=== PATIENT | female | born 1965 | race Caucasian/White ===

== ENCOUNTER 2017-05-18 06:33 | Day surgery (SDC) | payer MEDICAID ==
[2017-05-18] VITALS (7 sets, daily range): BP systolic 97–126; BP diastolic 56–75
[~2017-05-18] VITALS: Ht 163.8 cm; Wt 61.6 kg
[~2017-05-18 06:33] MED LIST: HYDR-3964 PO; LACT1CAP26 PO; PER10325T PO
[2017-05-18] MEDS ORDERED: normal saline 1000ml 1,000 ML IV SCH ×2 (06:50→08:57)
[2017-05-18] MEDS ORDERED: ONDA8TAB6 PO (07:18)
[2017-05-18] MEDS ORDERED: phenergan (07:18)
[2017-05-18] MEDS ORDERED: fiber PO (07:18)
[2017-05-18] MEDS ORDERED: bactrim PO (07:18)
[2017-05-18] MEDS ORDERED: compazine (07:18)
[2017-05-18 07:36] LABS: BASOPHILS # (AUTO) 0.1 X10'3 (0-0.2); BASOPHILS % (AUTO) 0.6 % (0-1); EOSINOPHILS # (AUTO) 0.3 X10'3 (0-0.9); EOSINOPHILS % (AUTO) 3.1 % (0-6); HEMATOCRIT 34.2 % (35.0-45.0); HEMOGLOBIN 11.6 g/dl (12.0-16.0); LYMPHOCYTES # (AUTO) 2.2 X10'3 (1.1-4.8); LYMPHOCYTES % (AUTO) 20.7 % (21-51); MEAN CORPUSCULAR HEMOGLOBIN 26.5 PG (27.0-31.0); MEAN CORPUSCULAR HGB CONC 33.8 % (33.0-36.5); MEAN CORPUSCULAR VOLUME 78.3 FL (78-98); MEAN PLATELET VOLUME 6.7 FL (7.4-10.4); MONOCYTES # (AUTO) 0.5 X10'3 (0-0.9); NEUTROPHILS # (AUTO) 7.5 X10'3 (1.8-7.7); NEUTROPHILS % (AUTO) 70.6 % (42-75); PLATELET COUNT 382 X10'3 (140-440); RED BLOOD COUNT 4.36 X10'6 (4.20-5.60); RED CELL DISTRIBUTION WIDTH 24.3 % (11.5-14.5); WHITE BLOOD COUNT 10.7 X10'3 (4.5-11.0)
[2017-05-18] MEDS ORDERED: fentaNYL/PF 50MCG/1 ML 2ML syringe ONE (09:06)
[2017-05-18] MEDS ORDERED: diphenhydrAMINE 50 mg/ml inj ONE (09:06)
[2017-05-18] MEDS ORDERED: LIDOcaine 1%/PF (10mg/ml) 5ml vial ONE (09:06)
[2017-05-18] MEDS ORDERED: heparin sodium, porcine/PF 100unit/ml 5ML syringe ONE (09:06)
[2017-05-18] MEDS ORDERED: fentaNYL/PF 50MCG/1 ML 2ML syringe IV PRN (09:45)
[2017-05-18] MEDS ORDERED: diphenhydrAMINE 50 mg/ml inj IV ONE (09:45)
== END 2017-05-18 11:08 | disposition home or self-care (01) ==
LOC: SSTAY O 06:33
PROVIDERS: ATTEND Radiology Diagnostic Radiology
DX: C18.9 Malignant neoplasm of colon, unspecified (principal); C80.1 Malignant (primary) neoplasm, unspecified; F17.210 Nicotine dependence, cigarettes, uncomplicated; F15.90 Other stimulant use, unspecified, uncomplicated; F32.9 Major depressive disorder, single episode, unspecified; Z86.73 Personal history of transient ischemic attack (TIA), and cerebral infarction without residual deficits; Z98.51 Tubal ligation status; Z79.2 Long term (current) use of antibiotics; Z98.890 Other specified postprocedural states; Z88.0 Allergy status to penicillin; Z88.1 Allergy status to other antibiotic agents; Z88.6 Allergy status to analgesic agent; Z79.899 Other long term (current) drug therapy
CPT/HCPCS: 36415; 36561; 76937; 77001; 82948; 85025; A6219; C1788; C1894; J1200; J1642; J2001; J3010; J7030; A4620

== ENCOUNTER 2018-07-06 07:28 | Day surgery (SDC) | payer MEDICAID ==
[~2018-07-06] VITALS: Ht 160 cm; Wt 68.7 kg
[2018-07-06] VITALS (8 sets, daily range): BP systolic 106–138; BP diastolic 53–81
[~2018-07-06 07:28] MED LIST changes: -LACT1CAP26 PO; +ONDA8TAB6 PO; -PER10325T PO; +bactrim PO; +compazine; +fiber PO; +phenergan
[2018-07-06] MEDS ORDERED: HYDROcodone/acetaminophen 10/325mg tab PO ONE (08:45)
[2018-07-06] MEDS ORDERED: LIDOcaine 1%/PF 5ML 10 MG/ML VIAL ONE (10:03)
== END 2018-07-06 12:10 | disposition home or self-care (01) ==
LOC: SSTAY O 07:28
PROVIDERS: ATTEND Radiology Vascular & Interventional Radiology
DX: Z45.2 Encounter for adjustment and management of vascular access device (principal); E11.9 Type 2 diabetes mellitus without complications; Z80.0 Family history of malignant neoplasm of digestive organs; F32.9 Major depressive disorder, single episode, unspecified; F20.9 Schizophrenia, unspecified; Z79.899 Other long term (current) drug therapy; Z88.0 Allergy status to penicillin; Z88.6 Allergy status to analgesic agent; Z88.8 Allergy status to other drugs, medicaments and biological substances; Z80.3 Family history of malignant neoplasm of breast; Z80.8 Family history of malignant neoplasm of other organs or systems
CPT/HCPCS: 36590; J2001

== ENCOUNTER 2018-09-15 03:11 | Inpatient (IN) | payer MEDICAID ==
[~2018-09-15] VITALS: Ht 160 cm; Wt 60.0 kg
[2018-09-15] VITALS (14 sets, daily range): BP systolic 111–139; BP diastolic 51–80
[~2018-09-15 03:11] MED LIST changes: -HYDR-3964 PO; -bactrim PO; -fiber PO; -phenergan
--- NOTE | 2018-09-15 04:14 | NUR ---
PATIENT STATES SHE WAS BIT BY HER CAT THAT HAS NOT RECIEVED IMMUNIZATIONS, PATIENT WAS EDUCATED ON THE RISK OF DISEASE HUMANS CAN AQUIRE FROM ANIMAL BITES
[2018-09-15] MEDS ORDERED: levoFLOXACIN-Levaquin 750MG/D5 150 ML IV STA (04:40)
[2018-09-15] MEDS ORDERED: clindamycin phosphate inj 600 MG in normal saline 50ml IV soln 50 ML IV ONE (04:40)
[2018-09-15] MEDS ORDERED: normal saline 1000ML IV soln IVB ONE (04:40)
[2018-09-15] MEDS ORDERED: morphine 4 MG/ML inj SYRINge IV ONE (04:50)
[2018-09-15] MEDS ORDERED: ondansetron/PF 4mg/2ml inj IV ONE ×2 (04:50→08:00)
[2018-09-15 05:47] LABS: BASOPHILS # (AUTO) 0.1 X10'3 (0-0.2); BASOPHILS % (AUTO) 1.2 % (0-1); EOSINOPHILS # (AUTO) 0.2 X10'3 (0-0.9); EOSINOPHILS % (AUTO) 1.4 % (0-6); HEMATOCRIT 35.7 % (35.0-45.0); HEMOGLOBIN 12.4 g/dl (12.0-16.0); LYMPHOCYTES # (AUTO) 2.1 X10'3 (1.1-4.8); LYMPHOCYTES % (AUTO) 17.8 % (21-51); MEAN CORPUSCULAR HEMOGLOBIN 31.8 PG (27.0-31.0); MEAN CORPUSCULAR HGB CONC 34.7 g/dL (33.0-36.5); MEAN CORPUSCULAR VOLUME 91.5 FL (78-98); MEAN PLATELET VOLUME 7.2 FL (7.4-10.4); MONOCYTES # (AUTO) 0.8 X10'3 (0-0.9); NEUTROPHILS # (AUTO) 8.6 X10'3 (1.8-7.7); NEUTROPHILS % (AUTO) 72.6 % (42-75); PLATELET COUNT 289 X10'3 (140-440); RED BLOOD COUNT 3.91 X10'6 (4.20-5.60); RED CELL DISTRIBUTION WIDTH 13.7 % (11.5-14.5); WHITE BLOOD COUNT 11.8 X10'3 (4.5-11.0)
[2018-09-15 05:54] LABS: ALANINE AMINOTRANSFERASE 31 U/L (12-78); ALBUMIN 3.7 G/DL (3.4-5.0); ALBUMIN/GLOBULIN RATIO 1.1 (1.1-1.5); ALKALINE PHOSPHATASE 82 IU/L (46-116); ANION GAP 11 (8-16); ASPARTATE AMINO TRANSFERASE 16 U/L (10-37); BILIRUBIN,TOTAL 0.5 MG/DL (0.1-1.0); BLOOD UREA NITROGEN 21 MG/DL (7-18); CALCIUM 8.7 MG/DL (8.5-10.1); CHLORIDE 104 MMOL/L (99-107); CREATININE 0.75 MG/DL (0.40-0.90); GLUCOSE 91 MG/DL (70-104); POTASSIUM 3.4 MMOL/L (3.5-5.1); SODIUM 140 MMOL/L (135-145); TOTAL CARBON DIOXIDE 24.6 MMOL/L (24-32); eGFR 80 ML/MIN
[2018-09-15] MEDS ORDERED: ketorolac trometh. 30mg/ml inj. IV ONE (06:35)
[2018-09-15] MEDS ORDERED: iohexol 300mg/ml 100ml inj. ONE (07:06)
--- NOTE | 2018-09-15 07:30 | NUR ---
pt ambulatory to the bathroom with steady gait, pt provide urine sample, sent to lab
--- NOTE | 2018-09-15 07:53 | NUR ---
PT BACK FROM CT, PT PLACED ON MONITOR, UPDATED VS, PT ALSO PLACED BACK ON IV ABX PER ORDERS.
--- NOTE | 2018-09-15 07:57 | NUR ---
PT REPORTS NAUSEA WHEN OUT AT CT, RECEIVED VERBAL ORDER FROM DR SMITH 4 MG IV ZOFRAN ONCE NOW, MD AWARE OF PREVIOUS DOSE 4 MG ZOFRAN EARLIER THIS AM.
[2018-09-15 08:06] LABS: CLARITY,URINE SLIGHTLY CLOUDY (Clear); COLOR,URINE YELLOW (Yellow); GLUCOSE, URINE NEGATIVE (Neg); KETONES,URINE NEGATIVE (Neg); LEUKOCYTE ESTERASE ,URINE NEGATIVE (Neg); NITRITES, URINE NEGATIVE (Neg); OCCULT BLOOD,URINE TRACE-INTACT (Neg); PROTEIN,URINE NEGATIVE (Neg); UROBILINOGEN,URINE 0.2 E.U/dL (0.2-1.0)
[2018-09-15 08:33] LABS: UA COLLECTION TYPE CLN CATCH MIDSTREAM
[2018-09-15 08:34] LABS: MUCUS STRANDS MANY /LPF (Neg); RBC,URINE 0-2 /HPF (0-2); SQUAMOUS EPITHELIAL CELL,UR MANY /LPF (FEW); WBC,URINE 0-4 /HPF (0-4)
[2018-09-15 08:35] LABS: BACTERIA,URINE FEW /HPF (Neg); HYALINE CASTS 0-3 /LPF (NEGATIVE)
[2018-09-15] MEDS ORDERED: normal saline 1000ml 1,000 ML IV SCH (08:58)
[2018-09-15] MEDS ORDERED: magnesium Cl slow-release 64mg tablet PO PRN (09:00)
[2018-09-15] MEDS ORDERED: potassium Cl 40MEQ/NS 500ml 500 ML IV PRN (09:00)
[2018-09-15] MEDS ORDERED: potassium CL 10mEq/100ml bag 100 ML IV PRN (09:00)
[2018-09-15] MEDS ORDERED: magnesium 2GM in 50ml NS 50 ML IV PRN (09:00)
[2018-09-15] MEDS ORDERED: morphine 2 MG/ML inj. syringe IV PRN ×2 (09:00)
[2018-09-15] MEDS ORDERED: magnesium hydroxide 30ml (MOM) UD suspension PO PRN (09:00)
[2018-09-15] MEDS ORDERED: HYDROcodone/acetaminophen 5mg/325mg tablet PO PRN (09:00)
[2018-09-15] MEDS ORDERED: potassium Cl 20 mEq SR tablet PO PRN (09:00)
[2018-09-15] MEDS ORDERED: magnesium 4gm in 100ml NS 100 ML IV PRN (09:00)
[2018-09-15] MEDS ORDERED: HYDROcodone/acetaminophen 10/325mg tab PO PRN (09:00)
[2018-09-15] MEDS ORDERED: mag hydrox/Alum hydrox/simeth 30ml oral suspension PO PRN (09:00)
[2018-09-15] MEDS ORDERED: acetaminophen 325mg tablet PO PRN ×2 (09:00)
[2018-09-15 09:03] LABS: URINE AMPHETAMINE SCREEN POSITIVE (Neg); URINE BARBITUATE SCREEN NEGATIVE (Neg); URINE BENZODIAZEPINES SCREEN NEGATIVE (Neg); URINE CANNABINOID SCREEN POSITIVE (Neg); URINE COCAINE SCREEN NEGATIVE (Neg); URINE METHADONE SCREEN NEGATIVE (Neg); URINE OPIATE SCREEN POSITIVE (Neg); URINE PHENCYCLIDINE SCREEN NEGATIVE (Neg)
[2018-09-15] MEDS ORDERED: NO HOME MEDS (09:45)
--- NOTE | 2018-09-15 13:30 | NUR ---
checked pt bg was 79, spoke to hospitalist Erica, he gave order for dextrose, and said he will take pt off npo status, and give [place] juice, told him pt is vomiting, gave zofran
[2018-09-15] MEDS ORDERED: BUPIVAcaine/PF 2.5 mg/ml (0.25%) 30ml vial ONE (13:35)
[2018-09-15] MEDS ORDERED: MESSAGE TO PHARMACY PO ONE (13:40)
[2018-09-15] MEDS ORDERED: glucagon, human recombinant 1mg kit SUBCUT PRN (13:40)
[2018-09-15] MEDS ORDERED: dextrose ORAL solution 15 GM/59 ML bottle PO PRN ×2 (13:40)
[2018-09-15] MEDS ORDERED: sodium chloride inj. 154 MEQ in Dextrose 10%-water IV solution 961.5 ML IV SCH (13:40)
[2018-09-15] MEDS ORDERED: insulin Lispro (HumaLOG) vial - multi-dose SQ SCH (13:40)
[2018-09-15] MEDS ORDERED: dextrose 50%-water 50ml dispensing syringe IV PRN ×2 (13:40)
[2018-09-15] MEDS: ondansetron/PF 4mg/2ml inj IV PRN (13:42)
[2018-09-15] MEDS ORDERED: sodium chloride inj. 154 MEQ in Dextrose 10%-water IV solution 1,000.0 ML IV SCH (13:46)
[2018-09-15] MEDS ORDERED: clindamycin 300mg/D5W 50mL 50 ML IV SCH (14:00)
[2018-09-15] MEDS: CLINDAmcin 900mg/NS 50ml IVPB 50 ML IV SCH (16:00)
[2018-09-15] MEDS ORDERED: CLINDAMYCIN PHOSPHATE/D5W 50 ML IV SCH (16:00)
[2018-09-15] MEDS ORDERED: CLINDAmcin 900mg/NS 50ml IVPB 50 ML IV SCH (16:02)
[2018-09-15] MEDS ORDERED: ringers solution, lacted 1,000 ML IV SCH (16:11)
[2018-09-15] MEDS ORDERED: morphine 4 MG/ML inj SYRINge IV PRN ×2 (16:15)
[2018-09-15] MEDS ORDERED: ondansetron/PF 4mg/2ml inj IV PRN (16:15)
[2018-09-15] MEDS ORDERED: proCHLORperazine 10 MG/2 ml inj IV PRN (16:15)
[2018-09-15] MEDS ORDERED: meperidine/PF 25mg/ml syringe IV PRN ×3 (16:15)
[2018-09-15] MEDS ORDERED: fentaNYL/PF 50MCG/1 ML 2ML syringe ONE ×2 (16:17→16:29)
[2018-09-15] MEDS ORDERED: midazolam 2 mg/2 ml injection ONE (16:17)
[2018-09-15] MEDS ORDERED: ondansetron/PF 4mg/2ml inj ONE (16:33)
[2018-09-15] MEDS ORDERED: succinylcholine 20mg/ml inj IV ONE (16:33)
[2018-09-15] MEDS ORDERED: propofol inj 20 ML IV ONE (16:33)
[2018-09-15] MEDS ORDERED: dexamethasone sod phosphate 4mg/ml inj. ONE (16:33)
[2018-09-15] MEDS ORDERED: LIDOcaine 2% (20mg/ml) 5ml vial ONE (16:33)
--- NOTE | 2018-09-15 16:50 | NUR ---
Received from OR via SURGICAL BED , accompanied by Anesthesiologist TRUPTI and report given by Anesthesiolgist. PATIENT WITH 18G PIV IN RIGHT NECK. DRESSING TO LEFT HAND IS CDI. + CAP REFILL. VSS AT THIS TIME. Addendum: 09/15/18 at 1702 by Jean Haywood RN, RN Amended: Links added.
--- NOTE | 2018-09-15 17:40 | NUR ---
ALL CRITERIA FOR TRANSFER TO THE FLOOR HAS BEEN ACHIEVED. VSS. BED LOW, CALL LIGHT AND VS. SET IN PLACE. RN PRESENT TO ACCEPT CARE. PATIENT RESTING COMFORTABLY IN BED. BELONGINGS SENT WITH PATIENT. DRESSINGS CDI. VSS. RN PRESENT TO ACCEPT CARE UPON ARRIVAL. PAIN CONTROLLED AND VITALS ALL SET UP. Addendum: 09/15/18 at 1742 by Jean Haywood RN, RN Amended: Links added.
--- NOTE | 2018-09-15 17:44 | NUR ---
ADDENDUM: BLOOD GLUCOSE IN RR WAS 93 POST OPERATIVELY Addendum: 09/15/18 at 1744 by Jean Haywood RN, RN Amended: Links added.
[2018-09-15] MEDS: CefTRIAXone 2gm/D5W 50ml 50 ML IV SCH (17:52)
[2018-09-15] MEDS: vancomycin/NS 1 GM ADD-VANTAGE 250 ML IV SCH (19:32)
[2018-09-15] MEDS: lactobacillus rhamnosus 10,000 MMU CELLS/CAPSULE PO SCH (19:32)
[2018-09-15] MEDS ORDERED: insulin glargine (Lantus) pen - multi-dose SQ SCH (21:00)
[2018-09-15] MEDS: potassium Cl 20 mEq SR tablet PO PRN (22:55)
[2018-09-16] VITALS: BP 122/76
[2018-09-16] MEDS: CLINDAmcin 900mg/NS 50ml IVPB 50 ML IV SCH ×2 (00:06→07:33)
[2018-09-16] MEDS: vancomycin/NS 1 GM ADD-VANTAGE 250 ML IV SCH (04:40)
[2018-09-16 04:43] VITALS: BP 120/70
[2018-09-16 05:32] LABS: BASOPHILS # (AUTO) 0.1 X10'3 (0-0.2); BASOPHILS % (AUTO) 0.6 % (0-1); EOSINOPHILS % (AUTO) 0 % (0-6); HEMOGLOBIN 11.9 g/dl (12.0-16.0); LYMPHOCYTES % (AUTO) 8.8 % (21-51); MEAN CORPUSCULAR HEMOGLOBIN 32.3 PG (27.0-31.0); MEAN CORPUSCULAR VOLUME 92.4 FL (78-98); MEAN PLATELET VOLUME 7.6 FL (7.4-10.4); MONOCYTES # (AUTO) 0.6 X10'3 (0-0.9); MONOCYTES % (AUTO) 4.9 % (2-12); NEUTROPHILS # (AUTO) 9.6 X10'3 (1.8-7.7); NEUTROPHILS % (AUTO) 85.7 % (42-75); PLATELET COUNT 275 X10'3 (140-440); RED BLOOD COUNT 3.68 X10'6 (4.20-5.60); RED CELL DISTRIBUTION WIDTH 13.5 % (11.5-14.5); WHITE BLOOD COUNT 11.2 X10'3 (4.5-11.0)
[2018-09-16 05:37] LABS: ALBUMIN 3.1 G/DL (3.4-5.0); ANION GAP 8 (8-16); BLOOD UREA NITROGEN 13 MG/DL (7-18); CALCIUM 8.5 MG/DL (8.5-10.1); CHLORIDE 105 MMOL/L (99-107); CREATININE 0.62 MG/DL (0.40-0.90); GLUCOSE 102 MG/DL (70-104); MAGNESIUM 1.8 MG/DL (1.5-2.4); POTASSIUM 3.5 MMOL/L (3.5-5.1); SODIUM 138 MMOL/L (135-145); TOTAL CARBON DIOXIDE 24.6 MMOL/L (24-32); eGFR > 90 ML/MIN
--- NOTE | 2018-09-16 06:47 | NUR ---
Patient in room [facility]. I have received report from SIMI Avila and farhan Carpenter RN and had the opportunity to ask questions and assume patient care.
[2018-09-16 07:09] VITALS: BP 120/69
[2018-09-16] MEDS ORDERED: levoFLOXACIN-Levaquin 750MG/D5 150 ML IV SCH (08:00)
[2018-09-16] MEDS: K and/or MAG REPLACEMENT MC SCH (08:00)
[2018-09-16] MEDS: lactobacillus rhamnosus 10,000 MMU CELLS/CAPSULE PO SCH ×2 (09:11→20:41)
[2018-09-16] MEDS: CefTRIAXone 2gm/D5W 50ml 50 ML IV SCH (09:12)
[2018-09-16] MEDS: enoxaparin 40mg/0.4ml syringe SQ SCH (09:12)
[2018-09-16] MEDS ORDERED: clindamycin-Cleocin 900mg/D5W 50 ML IV SCH (10:37)
[2018-09-16 11:13] VITALS: BP 120/70
[2018-09-16] MEDS ORDERED: piperacillin/tazo 3.375gm/50ml 50 ML IV SCH (11:30)
[2018-09-16] MEDS: ondansetron/PF 4mg/2ml inj IV PRN (17:44)
--- NOTE | 2018-09-16 18:43 | NUR ---
Problems reprioritized. Patient report given, questions answered & plan of care reviewed with SIMI Avila and farhan Carpenter RN.
[2018-09-16 20:14] VITALS: BP 116/63
[2018-09-16] MEDS: piperacillin/tazo 3.375gm/50ml 50 ML IV SCH (20:41)
[2018-09-16] MEDS ORDERED: temazepam 15mg capsule PO ONE (22:05)
[2018-09-17] VITALS: BP 125/71
[2018-09-17] MEDS: ondansetron/PF 4mg/2ml inj IV PRN (02:02)
[2018-09-17] MEDS ORDERED: VANCOMYCIN LEVEL IV ONE (03:30)
[2018-09-17] MEDS: piperacillin/tazo 3.375gm/50ml 50 ML IV SCH ×2 (05:08→12:00)
[2018-09-17 05:49] LABS: ANION GAP 6 (8-16); BASOPHILS # (AUTO) 0.1 X10'3 (0-0.2); BLOOD UREA NITROGEN 10 MG/DL (7-18); BUN/CREATININE RATIO 12.8 (6.6-38.0); CALCIUM 8.6 MG/DL (8.5-10.1); CHLORIDE 106 MMOL/L (99-107); CREATININE 0.78 MG/DL (0.40-0.90); EOSINOPHILS # (AUTO) 0.1 X10'3 (0-0.9); EOSINOPHILS % (AUTO) 1.5 % (0-6); GLUCOSE 96 MG/DL (70-104); HEMATOCRIT 32.1 % (35.0-45.0); HEMOGLOBIN 11.3 g/dl (12.0-16.0); LYMPHOCYTES # (AUTO) 2.6 X10'3 (1.1-4.8); LYMPHOCYTES % (AUTO) 30.2 % (21-51); MEAN CORPUSCULAR HEMOGLOBIN 32.6 PG (27.0-31.0); MEAN CORPUSCULAR HGB CONC 35.3 g/dL (33.0-36.5); MEAN CORPUSCULAR VOLUME 92.2 FL (78-98); MEAN PLATELET VOLUME 7.6 FL (7.4-10.4); MONOCYTES # (AUTO) 0.5 X10'3 (0-0.9); MONOCYTES % (AUTO) 5.9 % (2-12); NEUTROPHILS # (AUTO) 5.4 X10'3 (1.8-7.7); NEUTROPHILS % (AUTO) 61.4 % (42-75); PLATELET COUNT 241 X10'3 (140-440); POTASSIUM 3.4 MMOL/L (3.5-5.1); RED BLOOD COUNT 3.48 X10'6 (4.20-5.60); RED CELL DISTRIBUTION WIDTH 13.7 % (11.5-14.5); SODIUM 139 MMOL/L (135-145); TOTAL CARBON DIOXIDE 27.2 MMOL/L (24-32); WHITE BLOOD COUNT 8.8 X10'3 (4.5-11.0); eGFR 77 ML/MIN
--- NOTE | 2018-09-17 06:46 | NUR ---
Problems reprioritized. Patient report given, questions answered & plan of care reviewed with Jen BELCHER.
[2018-09-17 07:00] VITALS: BP 132/68
[2018-09-17] MEDS: lactobacillus rhamnosus 10,000 MMU CELLS/CAPSULE PO SCH (07:44)
[2018-09-17] MEDS: potassium Cl 20 mEq SR tablet PO PRN (07:44)
[2018-09-17] MEDS: enoxaparin 40mg/0.4ml syringe SQ SCH (07:45)
[2018-09-17] MEDS: K and/or MAG REPLACEMENT MC SCH (08:00)
[2018-09-17 11:00] VITALS: BP 93/68
--- NOTE | 2018-09-17 11:57 | NUR ---
left hand dressing removed by Dr Welch. Incision well approximated, no signs or symptoms of infection.
[2018-09-17] MEDS ORDERED: ketorolac tromethamine 15mg/ml inj. IV PRN (12:00)
[2018-09-17] MEDS ORDERED: AMOX-580 PO (13:15)
--- NOTE | 2018-09-17 14:30 | NUR ---
Pt discharged by nursing. New prescriptions pending delivery by [facility].
--- NOTE | 2018-09-17 15:14 | NUR ---
Pt discharged to home with all belongings, in private vehicle, accompanied by family. Discharge instructions and medications reviewed. Pt instructed to watch for signs and symptoms of infection and follow up with Dr Miller's office in 2 weeks; office number provided. IV DC'd, cannula intact. Pt walked self to front lobby instead of waiting for PCT to escort.
== END 2018-09-17 15:22 | disposition home or self-care (01) | DRG 364 ==
LOC: ER 03:12 → SUR 3N 13:08 → CMPBEDREQ 19:38
PROVIDERS: ADMIT Hospitalist; ATTEND Family Medicine
PROC: 0LB80ZZ Excision of Left Hand Tendon, Open Approach (ICD-10-PCS; 2018-09-15)
PROC: BP2U1ZZ Computerized Tomography (CT Scan) of Left Upper Extremity using Low Osmolar Contrast (ICD-10-PCS; 2018-09-15)
PROC: 0J9K0ZZ Drainage of Left Hand Subcutaneous Tissue and Fascia, Open Approach (ICD-10-PCS; principal; 2018-09-15 16:10)
DX: L02.512 Cutaneous abscess of left hand (principal); E11.42 Type 2 diabetes mellitus with diabetic polyneuropathy; E87.6 Hypokalemia; F12.90 Cannabis use, unspecified, uncomplicated; F17.210 Nicotine dependence, cigarettes, uncomplicated; F20.9 Schizophrenia, unspecified; L03.114 Cellulitis of left upper limb; F32.9 Major depressive disorder, single episode, unspecified; E87.1 Hypo-osmolality and hyponatremia; S61.452A Open bite of left hand, initial encounter; W55.01XA Bitten by cat, initial encounter; Z80.0 Family history of malignant neoplasm of digestive organs; Z80.3 Family history of malignant neoplasm of breast; Z82.0 Family history of epilepsy and other diseases of the nervous system; Z86.14 Personal history of Methicillin resistant Staphylococcus aureus infection; Z88.0 Allergy status to penicillin; Z92.21 Personal history of antineoplastic chemotherapy; Z92.3 Personal history of irradiation; Z85.038 Personal history of other malignant neoplasm of large intestine; Y93.89 Activity, other specified; Y92.89 Other specified places as the place of occurrence of the external cause; Y99.8 Other external cause status; Z88.5 Allergy status to narcotic agent; Z88.8 Allergy status to other drugs, medicaments and biological substances; Z71.51 Drug abuse counseling and surveillance of drug abuser
CPT/HCPCS: 36415; 73120; 73201; 80048; 80053; 80305; 81001; 82948; 83036; 83605; 83735; 85025; 87040; 87070; 87075; 87076; 87077; 87102; 87186; 96361; 96365; 96368; 96375; 96376; 99285; A6222; A6446; A6449; A7000; G0378; J0330; J0696; J1100; J1650; J1815; J1885; J1956; J2001; J2250; J2270; J2405; J2543; J2704; J3010; J3370; J3490; J7030; J7040; J7120; J7131; Q9967; X5958

== ENCOUNTER 2021-08-11 01:30 | Emergency (ER) | payer MEDICAID ==
[~2021-08-11] VITALS: Ht 160 cm; Wt 65.9 kg
[2021-08-11] MEDS ORDERED: normal saline 1000ML IV soln IVB ONE (02:30)
[2021-08-11] MEDS ORDERED: LORazepam 2 mg/ml vial IV ONE (02:30)
[2021-08-11 04:23] LABS: BASOPHILS # (AUTO) 0.1 X10'3 (0-0.2); BASOPHILS % (AUTO) 1.5 % (0-1); EOSINOPHILS # (AUTO) 0.2 X10'3 (0-0.9); EOSINOPHILS % (AUTO) 3.3 % (0-6); HEMATOCRIT 35.5 % (35.0-45.0); LYMPHOCYTES # (AUTO) 2.2 X10'3 (1.1-4.8); LYMPHOCYTES % (AUTO) 32.2 % (21-51); MEAN CORPUSCULAR HEMOGLOBIN 30.3 PG (27.0-31.0); MEAN CORPUSCULAR HGB CONC 33.9 g/dL (33.0-36.5); MEAN CORPUSCULAR VOLUME 89.6 FL (78-98); MEAN PLATELET VOLUME 6.9 FL (7.4-10.4); MONOCYTES # (AUTO) 0.5 X10'3 (0-0.9); MONOCYTES % (AUTO) 8.1 % (2-12); NEUTROPHILS # (AUTO) 3.7 X10'3 (1.8-7.7); NEUTROPHILS % (AUTO) 54.9 % (42-75); PLATELET COUNT 284 X10'3 (140-440); RED BLOOD COUNT 3.96 X10'6 (4.20-5.60); RED CELL DISTRIBUTION WIDTH 13.8 % (11.5-14.5); WHITE BLOOD COUNT 6.7 X10'3 (4.5-11.0)
--- NOTE | 2021-08-11 04:37 | NUR ---
PT ASLEEP UPON OBSERVATION. BLOOD PRESSURE RAN AND PT WOKE UP COMPLAINING OF PAIN. SHORTLY AFTER PT REPOSITIONED THEY FELL BACK ASLEEP
[2021-08-11 04:47] LABS: ALANINE AMINOTRANSFERASE 25 U/L (12-78); ALBUMIN 3.6 G/DL (3.4-5.0); ALBUMIN/GLOBULIN RATIO 1.2 (1.1-1.5); ALKALINE PHOSPHATASE 69 IU/L (46-116); ANION GAP 11 (8-16); ASPARTATE AMINO TRANSFERASE 20 U/L (10-37); BILIRUBIN,TOTAL 0.4 MG/DL (0.1-1.0); BLOOD UREA NITROGEN 18 MG/DL (7-18); CALCIUM 8.4 MG/DL (8.5-10.1); CHLORIDE 106 MMOL/L (99-107); CREATININE 0.75 MG/DL (0.40-0.90); GLUCOSE 84 MG/DL (70-104); SODIUM 143 MMOL/L (135-145); TOTAL CARBON DIOXIDE 25.6 MMOL/L (24-32); TOTAL PROTEIN 6.7 G/DL (6.4-8.2); eGFR 79 ML/MIN
[2021-08-11 04:51] LABS: POTASSIUM 2.7 MMOL/L (3.5-5.1)
[2021-08-11] MEDS: potassium CL 10mEq/100ml bag 100 ML IV SCH ×2 (05:34→06:40)
[2021-08-11 07:23] VITALS: BP 139/84
== END 2021-08-11 07:38 | disposition home or self-care (01) ==
LOC: ER 01:31
DX: E87.6 Hypokalemia (principal); R07.89 Other chest pain; R20.0 Anesthesia of skin; R06.02 Shortness of breath; F17.200 Nicotine dependence, unspecified, uncomplicated; F12.90 Cannabis use, unspecified, uncomplicated; F15.90 Other stimulant use, unspecified, uncomplicated; Z86.73 Personal history of transient ischemic attack (TIA), and cerebral infarction without residual deficits; Z86.2 Personal history of diseases of the blood and blood-forming organs and certain disorders involving the immune mechanism; Z85.038 Personal history of other malignant neoplasm of large intestine; Z72.89 Other problems related to lifestyle; Z88.8 Allergy status to other drugs, medicaments and biological substances; Z88.5 Allergy status to narcotic agent; Z88.6 Allergy status to analgesic agent
CPT/HCPCS: 36415; 71045; 80053; 84484; 85025; 93005; 96365; 96375; 96376; 99285; J2060; J3480; J7030